=== PATIENT | male | born 1990 | race American Indian/Alaskan Native ===

== ENCOUNTER 2021-10-13 21:53 | Emergency (ER) | payer SELFPAY ==
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
[2021-10-14 00:08] VITALS: BP 146/104
== END 2021-10-14 00:09 ==
LOC: ED 21:53
DX: F10.129 Alcohol abuse with intoxication, unspecified (principal); V89.2XXA Person injured in unspecified motor-vehicle accident, traffic, initial encounter; Y93.89 Activity, other specified; Y92.89 Other specified places as the place of occurrence of the external cause; Y99.8 Other external cause status
CPT/HCPCS: 99282